=== PATIENT | female | born 1980 ===

== ENCOUNTER 2021-01-08 11:36 | Emergency (ER) | payer OTHER ==
[2021-01-08 13:24] VITALS: BP 137/89
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
== END 2021-01-08 16:36 | disposition home or self-care (01) ==
LOC: ED 11:36
DX: S39.012A Strain of muscle, fascia and tendon of lower back, initial encounter (principal); Z88.2 Allergy status to sulfonamides; Z79.899 Other long term (current) drug therapy; V49.49XA Driver injured in collision with other motor vehicles in traffic accident, initial encounter; Y92.410 Unspecified street and highway as the place of occurrence of the external cause; Y93.89 Activity, other specified; Y99.8 Other external cause status
CPT/HCPCS: 72100